=== PATIENT | male | born 1985 | race Caucasian/White ===

== ENCOUNTER 2018-09-26 17:48 | Inpatient (IN) | payer OTHER ==
[~2018-09-26] VITALS: Ht 182.9 cm; Wt 64.3 kg
[2018-09-26 18:44] VITALS: Ht 182.9 cm; Wt 64.3 kg
[2018-09-26] MEDS ORDERED: SERT-165 PO (18:58)
[2018-09-26] MEDS ORDERED: INTE22DI SQ (19:02)
[2018-09-26] MEDS ORDERED: SOD CHLORIDE 0.9% 1,000 ML IV STA (19:18)
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
[2018-09-26] MEDS ORDERED: LORAZEPAM 2 MG INJ IV ONE (19:30)
[2018-09-26] MEDS ORDERED: MULTIVITAMINS 10 ML, THIAMINE 100 MG, FOLIC ACID 1 MG, MAGNESIUM SULFATE 2 GM in SOD CH... IV ONE (19:30)
[2018-09-26 22:00] VITALS: BP 133/85; PULSE 72; RESP 16
[2018-09-26 22:34] VITALS: PULSE 77
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
[2018-09-27] VITALS (11 sets, daily range): BP systolic 132–150; BP diastolic 87–98; PULSE 58–94; RESP 14–20
[2018-09-27] MEDS ORDERED: NACL 0.9% 3 ML SYG IV SCH
[2018-09-27] MEDS ORDERED: LORAZEPAM 2 MG INJ IV PRN
[2018-09-27] MEDS ORDERED: ONDANSETRON 4 MG INJ IV PRN
[2018-09-27] MEDS: CHLORDIAZEPOXIDE 25 MG CAP PO SCH ×4 (00:46→21:28)
[2018-09-27] MEDS: SOD CHLORIDE 0.9% 1,000 ML IV SCH ×3 (00:46→22:29)
[2018-09-27] MEDS: ACETAMINOPHEN 325 MG TAB PO PRN ×2 (02:48→10:01)
[2018-09-27] MEDS: LORAZEPAM 2 MG INJ IV PRN ×5 (04:02→19:46)
--- NOTE | 2018-09-27 07:43 | NUR ---
EOSS: Patient arrived on unit at 2200 from ED. Patient oriented to environment and call light. Patient refusing bed alarm, able to ambulate with assist. Patient stated he was feeling anxious, Ativan given as ordered. All needs anticipated and met. No sudden distress noted. Will continue to monitor. Plan of care to be endorsed to day shift.
[2018-09-27] MEDS: THIAMINE 100 MG TAB PO SCH (08:56)
[2018-09-27] MEDS: FOLIC ACID 1 MG TAB PO SCH (08:56)
[2018-09-27] MEDS: MULTIVITAMINS THERAPEUTIC TAB PO SCH (08:56)
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
[2018-09-27] MEDS: NIFEdipine (XL) 60 MG TAB PO SCH (16:46)
[2018-09-27] MEDS: LORAZEPAM 1 MG TAB PO SCH ×2 (16:46→21:28)
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
[2018-09-27] MEDS: NICOTINE (14 MG/24 HR) PATCH TRANSDERM SCH (18:09)
[2018-09-27] MEDS: SERTRALINE 100 MG TAB PO SCH (21:27)
[2018-09-27] MEDS: FAMOTIDINE 20 MG TAB PO SCH (21:28)
[2018-09-28] VITALS (36 sets, daily range): BP systolic 100–224; BP diastolic 68–193; PULSE 54–100; RESP 14–29
[2018-09-28] MEDS: ACETAMINOPHEN 325 MG TAB PO PRN (00:09)
[2018-09-28] MEDS: LORAZEPAM 2 MG INJ IV PRN ×6 (00:59→10:38)
--- NOTE | 2018-09-28 02:45 | NUR ---
Patient started getting combative still restless and wanting to get out of bed and walk despite SC ativan given. Patient can barely walk and very unsteady. Informed Dr. Gutierrez regarding patient 's status, received new orders. Will give PRN ativan 2MG IV.
[2018-09-28] MEDS ORDERED: DIPHENHYDRAMINE 50 MG INJ IV ONE (03:00)
[2018-09-28] MEDS ORDERED: HALOPERIDOL 5 MG INJ IM ONE (03:00)
--- NOTE | 2018-09-28 03:46 | NUR ---
Patient is calm, sleeping on bed. Effects of cocktail just started kicking in. Will continue to monitor. Addendum: 09/28/18 at 349 by KATIUSKA AN RN Patient off on the monitor, has a transfer order to Med-Surg, just waiting for available room. Addendum: 09/28/18 at 356 by KATIUSKA AN RN Received order for patient to have a 1:1 sitter.
[2018-09-28] MEDS: SOD CHLORIDE 0.9% 1,000 ML IV SCH ×3 (05:51→23:11)
--- NOTE | 2018-09-28 06:05 | NUR ---
Patient still restless, trying to get of bed and was trying to wear his shoes and attempting to walk away, Security officers were called. No sitter available yet, informed Dr. Gutierrez regarding patient's status. Received order for soft wrist restraints while no sitter available. Left a message to brother Dora regarding the restraint orders. Kept patient safe and comfortable.
[2018-09-28] MEDS: LORAZEPAM 1 MG TAB PO SCH (06:49)
--- NOTE | 2018-09-28 06:56 | NUR ---
Sitter at bedside. Patient is awake, confused,more calm this time. Vital signs stable. No signs of respiratory distress. On soft wrist restraints on bilateral upper extremities. Continue re-assessing patient every 2 hrs. Kept patient safe and comfortable.
[2018-09-28] MEDS: MULTIVITAMINS THERAPEUTIC TAB PO SCH (08:27)
[2018-09-28] MEDS: THIAMINE 100 MG TAB PO SCH (08:27)
[2018-09-28] MEDS: FAMOTIDINE 20 MG TAB PO SCH (08:27)
[2018-09-28] MEDS: FOLIC ACID 1 MG TAB PO SCH (08:27)
[2018-09-28] MEDS: NIFEdipine (XL) 60 MG TAB PO SCH (08:28)
[2018-09-28] MEDS: NICOTINE (14 MG/24 HR) PATCH TRANSDERM SCH (08:29)
[2018-09-28] MEDS: CHLORDIAZEPOXIDE 25 MG CAP PO SCH ×3 (08:33→20:21)
[2018-09-28] MEDS: ENOXAPARIN 40 MG/0.4 ML SYG SC SCH (08:37)
[2018-09-28] MEDS ORDERED: THIAMINE 100 MG TAB PO SCH (09:00)
--- NOTE | 2018-09-28 10:02 | NUR ---
Late Entry: Received the pt in AM. Pt was very agitated but at the same time very lethargic Hardly could keep his eyes open, confused, A/O x1 only. Keep reorienting. Sitter is at the bedside along with security operations analyst. Pt trying to get out of the bed, pushing the sitter and the security operations analyst, not steady. VS are WNL. Got an order to transfer the pt to ICU for further treatments. Gave report to Davie. Transferred the pt to ICU
[2018-09-28] MEDS ORDERED: LORAZEPAM (MDV) 100 MG in DEXTROSE 5% 50 ML IV SCH (10:30)
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
[2018-09-28] MEDS ORDERED: LORAZEPAM 4 MG/ML VIAL IV PRN (13:30)
[2018-09-28] MEDS ORDERED: HALOPERIDOL 5 MG INJ IM PRN (14:00)
[2018-09-28] MEDS ORDERED: CLONIDINE 0.2 MG/24 HR PATCH TRANSDERM SCH (14:00)
[2018-09-28] MEDS ORDERED: HALOPERIDOL 5 MG INJ IV ONE (14:00)
[2018-09-28] MEDS: DEXMEDETOMIDINE HCL 200 MCG in SOD CHLORIDE 0.9% 48 ML IV SCH ×2 (14:53→19:33)
--- NOTE | 2018-09-28 18:59 | CONS ---
DATE OF ADMISSION: 09/26/2018 DATE OF CONSULTATION: 09/28/2018 PULMONARY CRITICAL CARE CONSULTATION REFERRING PHYSICIAN: Hospitalist REASON FOR REFERRAL: For evaluation of alcohol withdrawal. HISTORY OF PRESENT ILLNESS: Mr. Patel is a 33-year-old male who was admitted on [facility] with symptoms of alcohol abuse. The patient, however, underwent alcohol withdrawal and had been transferred to ICU. By the time I saw him, the patient appears agitated but is responsive appropriat evelia. The patient has been started on Ativan drip. PAST MEDICAL HISTORY: 1. Hypertension. 2. History of alcoholic pancreatitis. 3. Possibly the patient is a smoker. CURRENT MEDICATIONS: 1. Ativan drip via protocol. 2. Normal saline 100 mL per hour. 3. Librium 50 mg three times a day. 4. Clonidine on a p.r.n. basis. 5. Lovenox 40 mg daily. 6. Pepcid 20 mg twice a day. 7. Folic acid 1 mg a day. 8. Haldol was given x1 5 mg IM. 9. Multivitamin daily. 10. Procardia-XL 60 mg daily. 11. Zoloft 150 mg daily. 12. Thiamine 100 mg daily. ALLERGIES: NONE. SOCIAL HISTORY: Positive for alcohol abuse as well as smoking. FAMILY HISTORY: Noncontributory. OCCUPATIONAL HISTORY: The patient is on disability. REVIEW OF SYSTEMS: Difficult to obtain. The patient, however, denies any shortness of breath, any h eadache, nausea, vomiting. PHYSICAL EXAMINATION: GENERAL: Young male, appears occasionally agitated. VITAL SIGNS: Temperature 98 degree Fahrenheit, respiratory rate is 18 to 20 per minute, heart rate 8 2 per minute, blood pressure 130/70, O2 saturation 98% on room air. HEENT: Supple neck. No JVD, no lymphadenopathy, midline trachea, no thyromegaly. Pharynx is clear, no neck bruits. CHEST: Clear to auscultation. CARDIOVASCULAR: S1, S2 audible. No murmurs, regular rhythm. ABDOMEN: Soft, nondistended, no organomegaly. Bowel sounds audible. EXTREMITIES: No edema or clubbing. AUTO REPAIR TECHNICIAN: No focal deficit. LABORATORY DATA: Reviewed. Sodium 140, potassium 3.9, chloride 104, bicarbonate 26, BUN 8, creatini ne 0.5. Liver enzymes: AST of 115. ALT of 98, both values showing a slightly downward trend, bilir ubin 1.2 down from 1.6 yesterday, white count 5, hemoglobin 12.7, platelet count of 160. ASSESSMENT: The patient admitted for alcohol withdrawal, exhibiting significant alcohol withdrawal s ymptoms, maintained on Ativan drip, on appropriate alcohol withdrawal protocol. RECOMMENDATIONS: Continue current supportive care. If the patient's condition worsens, he may likel y require intubation. Dictated By: RONY SANDOVAL MD AQ/NTS Conf#: [id number] DID#: [id number] CC: TAAR HEATH MD;*EndCC*
[2018-09-28] MEDS: SERTRALINE 100 MG TAB PO SCH (20:21)
[2018-09-29] VITALS (48 sets, daily range): BP systolic 97–153; BP diastolic 62–121; PULSE 52–88; RESP 11–26
[2018-09-29] MEDS: DEXMEDETOMIDINE HCL 200 MCG in SOD CHLORIDE 0.9% 48 ML IV SCH ×3 (02:53→18:51)
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
[2018-09-29] MEDS: NIFEdipine (XL) 60 MG TAB PO SCH (08:08)
[2018-09-29] MEDS: CHLORDIAZEPOXIDE 25 MG CAP PO SCH ×3 (08:08→20:36)
[2018-09-29] MEDS: THIAMINE 100 MG TAB PO SCH (08:09)
[2018-09-29] MEDS: MULTIVITAMINS THERAPEUTIC TAB PO SCH (08:09)
[2018-09-29] MEDS: ENOXAPARIN 40 MG/0.4 ML SYG SC SCH (08:16)
[2018-09-29] MEDS: SOD CHLORIDE 0.9% 1,000 ML IV SCH ×2 (08:27→18:08)
[2018-09-29] MEDS: NICOTINE (14 MG/24 HR) PATCH TRANSDERM SCH (08:28)
[2018-09-29] MEDS ORDERED: FAMOTIDINE 20 MG INJ IV SCH (09:00)
--- NOTE | 2018-09-29 09:35 | CONS ---
Date/Time of Note Date/Time of Note DATE: 09/29/18 TIME: 09:33 Assessment/Plan Assessment/Plan Additional Assessment/Plan Assessment recommendations; 1. Patient admitted for control with significant improvement in mental status, maintained on Precedex drip. Continue with supportive care. Continue alcohol withdrawal protocol. I did have a detailed discussion with the patient's mother at bedside and answered all her questions. Consultation Date/Type/Reason Admit Date/Time Sep 26, 2018 at 19:51 Initial Consult Date Type of Consult Pulmonary/critical care Reason for Consultation Patient's condition has significantly improved. Started on Precedex drip with marked improvement in mental status. Patient currently not exhibiting any overt signs of alcohol withdrawal. Has remained hemodynamically stable. General exam; young male, awake, responsive, currently in no distress. Exam/Review of Systems Vital Signs Vitals Vital Signs Date Temp Pulse Resp B/P (MAP) Pulse Ox O2 O2 Flow FiO2 Time Delivery Rate 09/29/18 60 16 129/100 100 Room Air 09:00 (110) 09/29/18 97.3 08:00 Intake and Output 09/28/18 09/28/18 09/29/18 1515:00 23:00 07:00 IntakeIntake Total 720 ml 1314.95 ml 858.66 ml OutputOutput Total 550 ml 0 ml BalanceBalance 720 ml 764.95 ml 858.66 ml Exam HEENT exam; supple neck, no JVD. No lymphadenopathy. Midline trachea. No t hyromegaly. Patient has good dentition. Pupils are midsize and reactive to light. No neck masses. Chest exam; clear to ulceration. S1-S2 audible, no murmurs. Regular rhythm. Abdomen exam; soft, nontender. Nondistended. No organomegaly. Bowel disord erly. Extremity exam; no edema clubbing. Pulses 2+. MANUFACTURING BUSINESS ANALYST exam; no focal deficit. She apparently awake and appropriately responsive. Not exhibiting any signs of agitation. RONY SANDOVAL Sep 29, 2018 09:35
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
[2018-09-29] MEDS: SERTRALINE 100 MG TAB PO SCH (20:35)
[2018-09-30] VITALS (27 sets, daily range): BP systolic 114–156; BP diastolic 75–111; PULSE 52–86; RESP 10–24
[2018-09-30] MEDS: DEXMEDETOMIDINE HCL 200 MCG in SOD CHLORIDE 0.9% 48 ML IV SCH (01:28)
[2018-09-30] MEDS: SOD CHLORIDE 0.9% 1,000 ML IV SCH ×2 (03:17→13:41)
[2018-09-30] MEDS: LORAZEPAM 1 MG TAB PO SCH ×3 (05:16→21:15)
--- NOTE | 2018-09-30 06:51 | NUR ---
EOSS: Pt. remains in stable condition overnight. LOC improving, pt. remembered I was his nurse last night, and able to tell me his name, where he was (hospital) and why he was here (because he is detoxing), he was unsure of time of day and at times he says things that have nothing to do with what I am talking to him about, periods of confusion. Pt. saturating well on room air. No bowel movement, able to use urinal without issue. Trying to titrate off PRECEDEX, currently running at 0.2mcg/kg/min due to the addition of scheduled Ativan. No acute changes overnight. Mother at bedside all night, encouraged her to leave the facility to get rest and take care of her self. All information will be endorsed to day shift RN.
[2018-09-30] MEDS: NIFEdipine (XL) 60 MG TAB PO SCH (08:24)
[2018-09-30] MEDS: THIAMINE 100 MG TAB PO SCH (08:24)
[2018-09-30] MEDS: FAMOTIDINE 20 MG TAB PO SCH (08:24)
[2018-09-30] MEDS: CHLORDIAZEPOXIDE 25 MG CAP PO SCH ×3 (08:24→21:15)
[2018-09-30] MEDS: MULTIVITAMINS THERAPEUTIC TAB PO SCH (08:24)
[2018-09-30] MEDS: NICOTINE (14 MG/24 HR) PATCH TRANSDERM SCH (08:25)
[2018-09-30] MEDS: ENOXAPARIN 40 MG/0.4 ML SYG SC SCH (08:32)
--- NOTE | 2018-09-30 09:12 | CONS ---
Date/Time of Note Date/Time of Note DATE: 09/30/18 TIME: 09:10 Assessment/Plan Assessment/Plan Additional Assessment/Plan Assessment recommendations; 1. Patient admitted with severe alcohol withdrawal with marked overall clinical improvement. Maintained on low-dose Precedex drip. Patient on appropriate alcohol withdrawal protocol as well. 2. History of hypertension. 3. Mild anemia and thrombocytopenia. Possibly alcohol-related. Wean off Precedex. Patient after that can be transferred to the medical floor. I did have a detailed discussion with the patient's mother at bedside and answered all her questions. Anticipate discharge in 24-48 hours. Consultation Date/Type/Reason Admit Date/Time Sep 26, 2018 at 19:51 Initial Consult Date Type of Consult Pulmonary/critical care 24 HR Interval Summary Free Text/Dictation Patient's condition is markedly improved. Patient remains completely awake and alert. And not exhibiting any signs of alcohol withdrawal or agitation. Denies any symptoms or shortness of breath, chest pain, abdominal pain, nausea vomiting. General exam; young male, awake alert, currently in no distress. Exam/Review of Systems Vital Signs Vitals Vital Signs Date Temp Pulse Resp B/P (MAP) Pulse Ox O2 O2 Flow FiO2 Time Delivery Rate 09/30/18 59 11 121/88 100 Room Air 07:00 (99) 09/30/18 97.8 04:00 Intake and Output 09/29/18 09/29/18 09/30/18 1515:00 23:00 07:00 IntakeIntake Total 1152.00 ml 1371.14 ml 980.54 ml OutputOutput Total 1900 ml 250 ml 875 ml BalanceBalance -748.00 ml 1121.14 ml 105.54 ml Exam H EENT exam; supple neck, no JVD. No lymphadenopathy. Midline trachea. No thyromegaly. Patient has good dentition. Pupils are midsize and reactive to light. Chest exam; clear to auscultation. S1-S2 audible, no murmurs. Regular rhythm. Abdomen exam; soft, no organomegaly. Bowel sounds audible. Extremity exam; no edema clubbing. OUTSIDE MAINTENANCE WORKER exam; no focal deficit. RONY SANDOVAL Sep 30, 2018 09:12
--- NOTE | 2018-09-30 10:34 | NUR ---
Bedside Report given and pt endorsed to Kristine RN. Pt status, chart and medications reviewed.
[2018-09-30] MEDS: ACETAMINOPHEN 325 MG TAB PO PRN ×2 (12:36→17:52)
--- NOTE | 2018-09-30 15:14 | NUR ---
NURSE NOTE: ASSUMED CARE OF PT AT 1030; PT IS A/O x4; CALM; VSS; OFF PRECEDEX GTT SINCE EARLIER THIS MORNING; STABLE FOR TRANSFER TO TELE PER MD SANDOVAL AND MÓNICA; PT TRANSFERRED SAFELY REPORT GIVEN TO MELITON LAYTON RN.
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
[2018-09-30] MEDS ORDERED: ONDANSETRON 4 MG INJ IV PRN (16:30)
[2018-09-30] MEDS: POTASSIUM CHLORIDE 20 MEQ POWDER FOR ORAL SOLN PO SCH (17:21)
[2018-09-30] MEDS: MAGNESIUM OXIDE 400 MG TAB PO SCH (21:15)
[2018-09-30] MEDS: SERTRALINE 100 MG TAB PO SCH (21:15)
[2018-10-01] VITALS (11 sets, daily range): BP systolic 113–151; BP diastolic 78–99; PULSE 62–78; RESP 18–19
[2018-10-01] MEDS: LORAZEPAM 4 MG/ML VIAL IV PRN ×5 (00:17→23:27)
[2018-10-01] MEDS: ACETAMINOPHEN 325 MG TAB PO PRN (00:17)
[2018-10-01] MEDS: SOD CHLORIDE 0.9% 1,000 ML IV SCH ×4 (00:19→21:41)
[2018-10-01] MEDS: LORAZEPAM 1 MG TAB PO SCH ×2 (06:00→13:10)
--- NOTE | 2018-10-01 06:19 | NUR ---
EOSS, Pt is A/O x2 at time confused, Restless,wants to smoke or to go home, obey verbal command. Pt remains anxious,this morning will endorse to morning RN
--- NOTE | 2018-10-01 06:32 | NUR ---
pt refused Am Ativan PO meds, he await for brother and MD to come and he will sign a paper- AMA to go home
[2018-10-01] MEDS: CHLORDIAZEPOXIDE 25 MG CAP PO SCH ×3 (07:31→20:02)
[2018-10-01] MEDS: MAGNESIUM OXIDE 400 MG TAB PO SCH ×2 (08:29→20:02)
[2018-10-01] MEDS: THIAMINE 100 MG TAB PO SCH (08:30)
[2018-10-01] MEDS: MULTIVITAMINS THERAPEUTIC TAB PO SCH (08:31)
[2018-10-01] MEDS: NIFEdipine (XL) 60 MG TAB PO SCH (08:31)
[2018-10-01] MEDS: POTASSIUM CHLORIDE 20 MEQ POWDER FOR ORAL SOLN PO SCH (08:32)
[2018-10-01] MEDS: NICOTINE (14 MG/24 HR) PATCH TRANSDERM SCH (08:32)
[2018-10-01] MEDS: FAMOTIDINE 20 MG TAB PO SCH (08:32)
[2018-10-01] MEDS: ENOXAPARIN 40 MG/0.4 ML SYG SC SCH (08:43)
--- NOTE | 2018-10-01 11:01 | NUR ---
SW: ETOH SW MET W/ PT @ BEDSIDE REGARDING ETOH & PT WANTING TO LEAVE AMA. PT STATES OKAY TO SPEAK IN FRONT OF MOTHER, STATING SHE KNOWS EVERYTHING. PLEASE SEE AMANDA VIDALES'S NOTES FOR INITIAL PSYCHOSOCIAL ASSESSMENT. PT STATES HE CURRENTLY DRINKS 1/2 BOTTLE OF VODKA A DAY, EVERY DAY. STATES HE WAS PERVIOUSLY USING OPIATES, & STATES HE WAS ABLE TO QUIT BY GETTING ON METHADONE. STATES HES BEEN DRINKING HEAVILY X1 YEAR. STATES HES GONE TO DETOX 1X, & STATES HES RECEPTIVE TO REHAB RESOURCES. SW PROVIDED PT W/ RESOURCES FOR ALCOHOL REHAB. PY & MOTHER STATING THEY WANT PT TO GO HOME AMA BECAUSE THE MEDICATION IS MAKING HIM ACT OUT. MOTHER REQUESTING S[employer]HAL[employer] BABY SITTER WHEN RN & MD SPEAKS W/ THEM SO MOTHER CAN PROVIDE ACCURATE INFORMATION SO PT GETS APPROPRIATE CARE. RYAN COELHO MADE AWARE. ALL QUESTIONS/. CONCERNS DENIED. SW REMAINS AVAILABLE NEEDED.
[2018-10-01] MEDS: HALOPERIDOL 5 MG INJ IM PRN (11:24)
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
--- NOTE | 2018-10-01 18:38 | NUR ---
EOSS Pt stable not in any distress nor is complaining of any discomfort as of writing this note. However, pt is in & out of confusion, is restless and keeps getting out of bed. POC reviewed and was carried out, needs anticipated, hourly rounding performed, room kept clean and clutter free, bed alarms kept on, siderails up and reinforced pt and mother to call for assistance if needed. Will endorse accordingly to night RN
[2018-10-01] MEDS: SERTRALINE 100 MG TAB PO SCH (20:02)
[2018-10-02] VITALS (9 sets, daily range): BP systolic 123–148; BP diastolic 86–93; PULSE 61–78; RESP 18–20
[2018-10-02] MEDS: LORAZEPAM 4 MG/ML VIAL IV PRN (04:24)
--- NOTE | 2018-10-02 06:26 | NUR ---
end of shift note: pt alert oriented x2-3, able to understand and follow simple command, family at bedside, pt sometimes get confused, tried to walked out of bed, pt experiencing some s/s of alcohol withdraw symptoms: insomnia, anxiety, agitation, and tremors on hands. 2 doses of IV PRN ativan given, it is partially controlled pt, pt was able to sleep for couple hours. vital signs stale. continue to monitor pt
[2018-10-02] MEDS: SOD CHLORIDE 0.9% 1,000 ML IV SCH ×2 (07:01→20:07)
[2018-10-02] MEDS: CHLORDIAZEPOXIDE 25 MG CAP PO SCH (08:22)
[2018-10-02] MEDS: MAGNESIUM OXIDE 400 MG TAB PO SCH ×2 (08:23→20:08)
[2018-10-02] MEDS: POTASSIUM CHLORIDE 20 MEQ POWDER FOR ORAL SOLN PO SCH (08:23)
[2018-10-02] MEDS: NIFEdipine (XL) 60 MG TAB PO SCH (08:23)
[2018-10-02] MEDS: NICOTINE (14 MG/24 HR) PATCH TRANSDERM SCH (08:23)
[2018-10-02] MEDS: MULTIVITAMINS THERAPEUTIC TAB PO SCH (08:24)
[2018-10-02] MEDS: FAMOTIDINE 20 MG TAB PO SCH (08:24)
[2018-10-02] MEDS: THIAMINE 100 MG TAB PO SCH (08:24)
[2018-10-02] MEDS: ENOXAPARIN 40 MG/0.4 ML SYG SC SCH (08:25)
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
[2018-10-02] MEDS: CHLORDIAZEPOXIDE 5 MG CAP PO SCH ×2 (12:41→20:08)
[2018-10-02] MEDS: HALOPERIDOL 5 MG INJ IM PRN (14:11)
--- NOTE | 2018-10-02 18:54 | NUR ---
END OF SHIFT. AWAKE, ALERT AND CONFUSE ON AND OFF MALE PATIENT. NO SEIZURE AND AMBULATE 4 TIMES WITH ASSIST AND CANE. STAEDY GAIT.MONITORING PATIENT.
[2018-10-02] MEDS: SERTRALINE 100 MG TAB PO SCH (20:08)
[2018-10-03 00:41] VITALS: BP 132/83; PULSE 60; RESP 18
--- NOTE | 2018-10-03 00:49 | NUR ---
TRANSFER NOTES: RECEIVED PT FROM 6W PER WHEELCHAIR AROUND 0035 ACCOMPANIED BY PT'S MOTHER NAD HOSP TRANSPORTERS. PT A/O X2, APPEARS TO BE A LITTLE ANXIOUS BUT NOTED TO BE COOPERATIVE OF THIS TIME. HAS ONGOING NS AT 100CC/HR INFUSING WELL ON THE RFA. DENIES PAIN. KEPT PT COMFORTABLE IN BED. BED ALARM ACTIVATED. FALL [RECAUTION M Addendum: 10/03/18 at 0053 by STEPHANIE BECKFORD RN CONTINUATION: FALL PRECAUTION MAINTAINED. CALL LIGHT PLACED WITHIN REACH. INSTRUCTED PT AND PT'S MOTHER TO CALL FOR ASSISTANCE IF NEEDED. WILL CONTINUE TO MONITOR.
--- NOTE | 2018-10-03 01:36 | NUR ---
gave report to Marko in 5E medsurg, transport arrived and took pt to 5E around 0030, pt stable, no c/o of any distress for now.
[2018-10-03] MEDS: LORAZEPAM 4 MG/ML VIAL IV PRN (01:45)
[2018-10-03 02:05] VITALS: BP 135/84; PULSE 64; RESP 18
--- NOTE | 2018-10-03 04:48 | NUR ---
SHIFT REPORT: NO SIGNIFICANT CHANGE IN PT'S STATUS OF THIS TIME. ATIVAN IV GIVEN FOR ANXIETY. SEEN SLEEPING DURING ROUNDS. NO SIGN OF DISTRESS NOTED. PT'S MOTHER AT THE BEDSIDE. WILL CONTINUE TO MONITOR. Addendum: 10/03/18 at 0605 by STEPHANIE BECKFORD RN PT REFUSED TO HAVE PICTURES OF HIS HEELS AND SACRAL AREA TAKEN. WILL ENDORSE TO ONCOMING NURSE.
[2018-10-03] MEDS: SOD CHLORIDE 0.9% 1,000 ML IV SCH (05:40)
[2018-10-03] MEDS ORDERED: [UNRECOGNIZED DRUG - OTHER] SC SCH (09:00)
[2018-10-03 09:45] VITALS: BP 111/83; PULSE 76; RESP 18
[2018-10-03] MEDS: POTASSIUM CHLORIDE 20 MEQ POWDER FOR ORAL SOLN PO SCH (09:47)
[2018-10-03] MEDS: CHLORDIAZEPOXIDE 5 MG CAP PO SCH (09:47)
[2018-10-03] MEDS: FAMOTIDINE 20 MG TAB PO SCH (09:49)
[2018-10-03] MEDS: NIFEdipine (XL) 60 MG TAB PO SCH (09:49)
[2018-10-03] MEDS: THIAMINE 100 MG TAB PO SCH (09:49)
[2018-10-03] MEDS: MULTIVITAMINS THERAPEUTIC TAB PO SCH (09:50)
[2018-10-03] MEDS: ENOXAPARIN 40 MG/0.4 ML SYG SC SCH (09:50)
--- NOTE | 2018-10-03 10:38 | NUR ---
AMA: Pt. leaving AMA. VSS, A/Ox4, no acute signs of distress. Pt. explained risks of leaving still decided to leave AMA. CYTOTECHNOLOGIST/CYTOLOGY SUPERVISOR Tiesha notified. IV removed, armband removed, AMA form signed; copy given to pt.
[2018-10-03] MEDS: MAGNESIUM OXIDE 400 MG TAB PO SCH (10:52)
[2018-10-03] MEDS: NICOTINE (14 MG/24 HR) PATCH TRANSDERM SCH (10:53)
--- NOTE | 2018-10-03 11:05 | NUR ---
Picture of sacrum and heels not obtained d/t pt./ leaving AMA
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
== END 2018-10-03 10:54 | disposition left against medical advice (07) | DRG 894 ==
LOC: E/R 17:48 → TEL 19:51 → ICU 09-28 09:21 → 6WM 09-30 15:03 → 5EC 10-03 00:30
PROVIDERS: ADMIT Internal Medicine; ATTEND Internal Medicine
DX: F10.231 Alcohol dependence with withdrawal delirium (principal); F17.203 Nicotine dependence unspecified, with withdrawal; I10 Essential (primary) hypertension; D64.9 Anemia, unspecified; D69.6 Thrombocytopenia, unspecified; G35 Multiple sclerosis; F32.9 Major depressive disorder, single episode, unspecified
CPT/HCPCS: 36415; 76700; 80048; 80053; 80307; 82140; 83036; 83690; 83735; 84100; 84443; 85025; 85610; 86704; 86709; 86803; 87081; 87340; 96374; J1200; J1630; J1650; J2060; J3411; J3475; J7030